=== PATIENT | female | born 2000 | race Caucasian/White ===

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

== ENCOUNTER 2020-03-12 16:10 | Outpatient (CLI) | payer MEDICAID, SELFPAY ==
[2020-03-12 14:46] VITALS: BMI 22.2
[2020-03-12 16:10] VITALS: BP 101/57; PULSE 89; TEMP 37.1; O2SAT 100
[2020-03-12 16:28] VITALS: BMI 22.1
--- NOTE | 2020-03-12 17:15 | NURSING ---
Pt presents to after examination in ER escorted with 2 police officers from the [facility]. Pt has left arm in sling from fall, put on in ER. Pt states that she was pacing in cell for exercise when she slipped and fell on her abd and arm. No bruising or lacerations noted to abd on examination. Pt states is tender on examination. Later during examination this RN obtaining HR and using monitor, applied pressure to abd, and no pain or facial grimacing was reported by pt. Pt denies any vaginal bleeding. Pt had one visit in [place] but is unable to remember the name of her doctor. Pt states she is a 3 para 0 with 2 early miscarriages in 2013 and 2019. Pt reports that she has had cramping, spotting and difficulty breathing for 2 months. Pt states she has been to 4 hospitals for evaluation. Pt also complains of headache, n/v, blurred vision (if she stares too long) and epigastric pain. Pt observed to be resting comfortably in bed and asking for dinner. Pt on monitor for 1 hour , no uterine activity noted and FHR was spot checked at 1610 for 135 and at 1704 for 150. 1655: CKim Patel spoke with Dr Chairez and made aware of pt fall and all of the above stated complaints by pt. Discharge order recieved. Pt [facility] w/ f/u visits to be scheduled every 4 weeks. Pt admits that she saw a [facility] last week after denying twice that she has seen any OB doctor in area. This information obtained after pt was discharged.
--- NOTE | 2020-03-24 22:52 | OB.TRI.NOTE ---
History of Present Illness Was patient seen by the physician?: No Reason For Visit: FALL Allergies nystatin Allergy (Verified 03/12/20 14:49) Rash onion Allergy (Verified 03/12/20 16:32) Anaphylaxis - Pertinent Past Medical History Medical History: Past Medical History (Last Updated 03/24/20 @ 22:[address] Shazia Chairez MD) Spontaneous Review of Systems Gynecological: Reports: Vaginal bleeding - none active. movement present. Physical Exam Vitals: Vital Signs Temp Pulse BP Pulse Ox 98.7 F 89 101/57 L 100 03/12/20 16:10 03/12/20 16:10 03/12/20 16:10 03/12/20 16:10 Impression/Plan Previable Post fall observation- no suspicion or evidence for abruption.
== END 2020-03-12 17:15 | disposition home or self-care (01) ==
LOC: WPOUT 16:26 → WP 16:27
PROVIDERS: Referring Provider Obstetrics & Gynecology Gynecology; Visit Provider Obstetrics & Gynecology Gynecology
DX: Z04.3 Encounter for examination and observation following other accident (principal); O46.90 Antepartum hemorrhage, unspecified, unspecified trimester; Z3A.00 Weeks of gestation of pregnancy not specified
CPT/HCPCS: 59050; 99218; G0378

== ENCOUNTER 2020-03-25 13:12 | Outpatient (CLI) | payer MEDICAID, SELFPAY ==
[2020-03-25 13:29] VITALS: BMI 23.8
[2020-03-25 13:36] VITALS: BP 101/51; PULSE 114; TEMP 37.2
--- NOTE | 2020-03-25 13:42 | PN_ITS ---
Progress Note Triage note No care. Presenting for decreased movement. Pt states she was here last week and fell, was monitored shortly and then sent back to longterm. She states she has not felt FM since that time. Patient reports soreness in back and generally in abdomen. Reports reflux, but this is improved with omeprazole. Denies nausea/emesis, RUQ pain, vision changes. OB Hx: G1: current. Questionable SAB however pt denies every having +UPT or late period Medical Hx: Asthma, reflux Surgeries: several surgeries on neck for infections. Thigh laceration repair. no abdominal surgeries Social: currently no alcohol/drugs/ tobacco as she is incarcerated Medications: albuterol PE: Vital Signs Temp Pulse BP 03/25/20 13:36 98.9 F 114 H 101/51 L GEN: NAD, comfortable in bed CARDIORESP: no increased effort ABDOMEN: soft, NT, gravid EXT: no edema CE: CL/Th/Hi A/P: G1 at 24-27w (patient is unsure of GA because she states her providers have changed this three times) with decreased movement. NST reactive. BSUS completed with subjectively normal fluid, anterior placenta, copious movement. Patient now saying that she is feeling FM. UA pos for UTI, macrobid x1w script sent to [facility]. Abdominal pain likely musculoskeletal and pain of . No evidence of labor, no evidence of abruption. No bleeding today, no contractions, abdomen soft, status reassuring. CO's anticipate patient release from longterm in August 2020. 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 Emphasized need for follow up every 2 weeks there as she has established care with them. STROKE Vital Signs/Narrative: Vital Signs Pulse BP 03/25/20 13:36 114 H 101/51 L
[2020-03-25 14:19] LABS: Mucous, Urine 0 SEEN /hpf (<or=2+); Red Blood Cells-Urine 0 SEEN /hpf (0-5)
[2020-03-25 14:22] LABS: Color, Urine Yellow (Yellow); Glucose, Dipstick 50 mg/dl (Normal); Ketone-Dipstick Negative (Negative); Leukocyte Esterase-Dipstick 25 /ul (Negative); Nitrite-Dipstick Negative (Negative); Occult Blood-Urine Negative /ul (Negative); Protein-Dipstick Negative (Negative); Urine Bilirubin Dipstick Negative (Negative); Urine Clarity Cloudy (Clear); Urine Urobilinogen Normal (Normal)
[2020-03-25 14:49] LABS: Bacteria 2+ /hpf (None Seen); Squamous Epithelial Cells - UA 5-10 SEEN /hpf (5-10); White Blood Cells 0-5 SEEN /hpf (0-5)
== END 2020-03-25 15:15 | disposition home or self-care (01) ==
LOC: WPOUT 13:24 → WP 13:24
PROVIDERS: Visit Provider Student in an Organized Health Care Education/Training Program
DX: O36.8120 Decreased fetal movements, second trimester, not applicable or unspecified (principal); O23.42 Unspecified infection of urinary tract in pregnancy, second trimester; O99.512 Diseases of the respiratory system complicating pregnancy, second trimester; J45.909 Unspecified asthma, uncomplicated; O99.612 Diseases of the digestive system complicating pregnancy, second trimester; K21.9 Gastro-esophageal reflux disease without esophagitis; Z3A.00 Weeks of gestation of pregnancy not specified
CPT/HCPCS: 59025; 59050; 81001; 99218; G0378